=== PATIENT | male | born 1965 | race Two or more races ===

== ENCOUNTER 2022-04-30 15:23 | Emergency (ER) | payer SELFPAY | END 2022-04-30 18:20 | disposition home or self-care (01) | LOC: JD.ED 15:23 | DX: S29.012A Strain of muscle and tendon of back wall of thorax, initial encounter (principal); S16.1XXA Strain of muscle, fascia and tendon at neck level, initial encounter; S39.012A Strain of muscle, fascia and tendon of lower back, initial encounter; S09.90XA Unspecified injury of head, initial encounter; W20.8XXA Other cause of strike by thrown, projected or falling object, initial encounter | CPT/HCPCS: 70450; 70450-26; 72125; 72125-26; 72128; 72128-26; 72131; 72131-26; 99284 ==